=== PATIENT | female | born 1990 | race Caucasian/White ===

== ENCOUNTER 2016-06-20 17:32 | Emergency (ER) | payer MEDICAID ==
[2016-06-20] MEDS ORDERED: LACTATED RINGER'S 1000 ML INJ 1,000 ML IV ONE (18:45)
[2016-06-20 19:04] LABS: BACTERIA, URINE OCC /hpf; BLOOD, URINE NEG (NEG); COMMENT (UR) CULT NOT INDICATED; CULTURE IF INDICATED CULT NOT INDICATED; GLUCOSE,URINE NEG (NEG); KETONE, URINE NEG (NEG); NITRITE,URINE NEG (NEG); SQUAMOUS EPITHELIAL CELL URINE 1 /hpf (0-5); URINE COLOR COLORLESS (YELLW/STRAW)
[2016-06-20 19:45] VITALS: PULSE 98; RESP 18
[2016-06-20] MEDS ORDERED: TERBUTALINE INJ 1 MG/ML AMP SQ ONE (19:45)
--- NOTE | 2016-06-20 20:11 | PD ---
HPI Chief Complaint Pelvic pressure Date Seen: June 20, 2016 Time Seen: 18:00 Travel History International Travel<30 Days: No Contact w/Intl Traveler<30Days: No Known Affected Area: No History of Present Illness HPI 25-year-old female who is at 31 weeks gestation comes in today complaining of pelvic pressure since this morning. Denies contractions vaginal bleeding or vaginal discharge and is been having normal movement. No complications during this with the last visit approximately 10 days ago Para: 0 : 1 History Past Medical History Medical History: Denies Significant Hx Past Surgical History Surgical History: No Previous Surgery Family History Family History: Negative Social History Alcohol Use: No Tobacco Use: No Substance Abuse: No Allergies-Medications (Allergen,Severity, Reaction): Coded Allergies: No Known Allergies (Unverified , 06/20/16) Review of Systems Except as stated in HPI: all other systems reviewed are Neg Physical Exam Vital Signs Date Time Temp Pulse Resp B/P Pulse Ox O2 Delivery O2 Flow Rate FiO2 06/20/16 19:45 98 18 Narrative GENERAL: Well-nourished, well-developed patient. SKIN: Warm and dry. HEAD: Normocephalic and atraumatic. EYES: No scleral icterus. No injection or drainage. ENT: No nasal drainage noted. Mucous membranes pink. Airway patent. NECK: Supple, trachea midline. No JVD. CARDIOVASCULAR: Regular rate and rhythm without murmurs, gallops, or rubs. RESPIRATORY: Breath sounds equal bilaterally. No accessory muscle use. BREASTS: Bilateral exam showed no masses , no retractions, no nipple discharge. ABDOMEN/GI: Abdomen soft, non-tender, bowel sounds present, no rebound, no guarding Gravid to [-32] weeks size Fundal Height: [-] GENITOURINARY: External Genitalia: intact and normal in appearance BUS glands: [-Normal] Cervix: [-Posterior] Dilatation: [-1] Effacement: [-Thick] Station: [--3] Presentation: [-Vertex] Membranes: [intact or ruptured] intact Uterine Contractions: [-] Every 5 minutes FHT's: Category: [-1] Baseline: [140-] Reactive: [Moderate-] Variability: [Moderate-] Decels: [Absent-] EXTREMITIES: No cyanosis or edema. BACK: Nontender without obvious deformity. No CVA tenderness. NEUROLOGICAL: Awake and alert. Motor and sensory grossly within normal limits. Five out of 5 muscle strength in all muscle groups. Normal speech. Patient was reevaluated after 2 hours. fibronectin was noted to be negative and urinalysis was normal. Patient has received 800 cc of lactated Ringer's and 0.25 mg of terbutaline given subcutaneous with resolution of contractions Data Data Orders Vital Signs (Adult) .ON ADMISSION (06/20/16 18:42) ^ Labor Status (06/20/16 18:42) Urinalysis - C+S If Indicated (06/20/16 18:42) Diet Liquid (06/20/16 Dinner) Type And Screen (06/20/16 18:42) Fibronectin (06/20/16 18:42) Lactated Ringer's 1000 Ml Inj (Lr 1000 M (06/20/16 18:45) Terbutaline Inj (Brethine Inj) (06/20/16 19:45) Labs Laboratory Tests Test 06/20/16 18:41 Urine Color COLORLESS Urine Turbidity CLEAR Urine pH 7.0 Urine Specific [place]on 1.002 Urine Protein NEG Urine Glucose (UA) NEG Urine Ketones NEG Urine Occult Blood NEG Urine Nitrite NEG Urine Bilirubin NEG Urine Urobilinogen LESS THAN 2.0 Urine Leukocyte Esterase NEG Urine RBC 1 Urine WBC 1 Urine Squamous Epithelial 1 Cells Urine Bacteria OCC Microscopic Urinalysis Comment CULT NOT INDICATED Fibronectin NEGATIVE MDM Plan 25-year-old female who is at 31 weeks gestation was noted to have contractions on the monitor but had a negative fibronectin and resolution of contractions after IV fluids and terbutaline Recommended modified bedrest and pelvic rest Follow-up with OB provider and labor precautions were given Diagnosis Diagnosis: Primary Impression: False labor before 37 completed weeks of gestation during in third trimester, antepartum Additional Impressions: Prematurity, weight 1,750-1,999 grams, with 31 completed weeks of gestation 31 weeks gestation of Disposition: DISCHARGE HOME Adrianna Grant MD June 20, 2016 20:11
== END 2016-06-20 20:18 | disposition home or self-care (01) ==
LOC: HOBED 17:32
DX: O47.03 False labor before 37 completed weeks of gestation, third trimester (principal); Z3A.31 31 weeks gestation of pregnancy
CPT/HCPCS: 81001; 82731; 86850; 86900; 86901; 96372; 99284; J3105; J7120

== ENCOUNTER 2016-08-15 07:42 | Inpatient (IN) | payer MEDICAID ==
[2016-08-15] VITALS (52 sets, daily range): BP systolic 119–175; BP diastolic 66–122; PULSE 18–242; RESP 17–19; TEMP 97.5–98.5
[~2016-08-15] VITALS: Ht 154.9 cm; Wt 64.4 kg
--- NOTE | 2016-08-15 08:01 | MH ---
cc: HCRISTIAN HARDING M.D. Corrected Copy: 08/16/16 DATE OF ADMISSION: 08/15/2016 DATE OF 1990 HISTORY The patient is a 25 year-old female 1, para 0. Last menstrual period was November 12, 2015. The patients estimated date of confinement August 17, 2016, confirmed by a first trimester ultrasound on January 23, 2016 where the crown/rump length measured 10 weeks and 3 days. The patient is approximately 39 weeks and 5 days with a favorable cervix. The patient's Singh score was 9 in the office. Biophysical profile obtained today was 8/8. Estimated weight is approximately 7 pounds. PAST MEDICAL HISTORY Patient denies any systemic or chronic disease. ALLERGIES No known drug allergies MEDICATIONS Current medications include vitamins. GYNECOLOGIC HISTORY Normal. OBSTETRICAL HISTORY The patient's obstetrical history is unremarkable. has had a healthy normal . Group B strep status is negative. Blood type is O+. Hepatitis, RPR and HIV screens were negative as were all other sexually transmitted disease panels. SOCIAL HISTORY Employed, . Denies any alcohol, tobacco or illicit substance use. FAMILY HISTORY Noncontributory. PHYSICAL EXAMINATION IN GENERAL: Well-appearing female in no acute distress. VITAL SIGNS: Stable. Blood pressures 150/100 and easily came down to 130/80. The patient's weight is 142 pounds. heart rate tracing is in the 140s and reactive. HEAD, EYES, EARS, NOSE, AND THROAT: Shows no adenopathy, thyromegaly. LUNGS: Lungs are clear in all frankel. CARDIOVASCULAR SYSTEM: Regular rate and rhythm. ABDOMEN: Gravid, full-term. The patient's cervix is 60% effaced, 3 cm soft, mid position and -2. Vertex presentation identified. EXTREMITIES: Symmetrical, full range of motion. There is no cyanosis or clubbing. She has about 1+ edema. There is no clonus. Deep tendon reflexes are 1+. NEUROLOGIC: Exam is nonfocal. ASSESSMENT The patient at 39 and 5 weeks with a slightly elevated blood pressure which normalized after relaxation. RECOMMENDATIONS: Recommendation is to proceed with induction of labor. The patient's cervix was inducible. She is scheduled for Pitocin with Talihina. The patients group B strep status is negative. Estimated weight is approximately 7 pounds. MD LUCIA Schwartz/lelo /12:57 PM /10:32 AM
[2016-08-15] MEDS: LACTATED RINGER'S 1000 ML INJ 1,000 ML IV SCH (08:30)
[2016-08-15] MEDS ORDERED: LACTATED RINGER'S 1000 ML INJ 1,000 ML IV PRN (09:06)
[2016-08-15] MEDS ORDERED: LIDOCAINE HCL 1% 50 ML VIAL I-DERMAL PRN (09:15)
[2016-08-15] MEDS ORDERED: CITRIC ACID-SODIUM CITRATE LIQ 30 ML UDC PO SCH (09:15)
[2016-08-15] MEDS ORDERED: LIDOCAINE HCL 1% 50 ML VIAL INFIL PRN (09:15)
[2016-08-15] MEDS ORDERED: MINERAL OIL 10 ML VIAL TOPICAL PRN (09:15)
[2016-08-15] MEDS ORDERED: OXYTOCIN 30 UNITS-500ML PREMIX 500 ML IV ONE (09:15)
[2016-08-15] MEDS ORDERED: SODIUM CHLORID 0.9% 500 ML INJ 500 ML IV PRN (09:15)
[2016-08-15] MEDS ORDERED: OXYTOCIN 30 UNITS-500ML PREMIX 500 ML IV SCH (09:15)
[2016-08-15] MEDS ORDERED: SODIUM CHLOR 0.9% 1000 ML INJ 1,000 ML IV PRN (09:26)
[2016-08-15 09:31] LABS: AUTOMATED NEUTROPHIL # 10.6 TH/MM3 (1.8-7.7); BASOPHIL # 0.1 TH/MM3 (0-0.2); BASOPHIL % 0.4 % (0.0-2.0); EOSINOPHIL # 0.1 TH/MM3 (0-0.4); EOSINOPHIL % 0.6 % (0.0-4.0); HEMATOCRIT 39.3 % (35.0-46.0); HEMO FLAGS DIFF FINAL; LYMPH % 18.2 % (9.0-44.0); LYMPHOCYTE # 2.5 TH/MM3 (1.0-4.8); MEAN CELL VOLUME 84.4 FL (80.0-100.0); MEAN CORPUSCULAR HEMOGLOBIN 28.1 PG (27.0-34.0); MEAN CORPUSCULAR HGB CONC 33.3 % (32.0-36.0); MONO % 4.3 % (0.0-8.0); NEUT % 76.5 % (16.0-70.0); PLATELET COUNT 166 TH/MM3 (150-450); RED BLOOD COUNT 4.66 MIL/MM3 (4.00-5.30); RED CELL DISTRIBUTION WIDTH 13.7 % (11.6-17.2); WHITE BLOOD COUNT 13.8 TH/MM3 (4.0-11.0)
[2016-08-15 09:40] LABS: BLOOD, URINE NEG (NEG); GLUCOSE,URINE NEG (NEG); KETONE, URINE NEG (NEG); NITRITE,URINE NEG (NEG); SQUAMOUS EPITHELIAL CELL URINE 1 /hpf (0-5); URINE COLOR LIGHT-YELLOW (YELLW/STRAW)
[2016-08-15 09:43] LABS: COMMENT (UR) CULT NOT INDICATED; CULTURE IF INDICATED CULT NOT INDICATED
[2016-08-15 10:07] LABS: ALT (GPT) 20 U/L (10-53)
[2016-08-15 10:10] LABS: ALKALINE PHOSPHATASE 176 U/L (45-117); TOTAL BILIRUBIN ADULT 0.2 MG/DL (0.2-1.0)
[2016-08-15 10:24] LABS: ANION GAP 12 MEQ/L (5-15); AST (GOT) 27 U/L (15-37); BICARBONATE 19.5 MEQ/L (21.0-32.0); BLOOD UREA NITROGEN 10 MG/DL (7-18); CHLORIDE 107 MEQ/L (98-107); GLOMERULAR FILTRATION RATE 102 ML/MIN (>89); POTASSIUM 3.8 MEQ/L (3.5-5.1); SODIUM (NA) 138 MEQ/L (136-145)
[2016-08-15] MEDS ORDERED: fentaNYL 2MCG-BUPIV 0.125% INJ 100 ML ONE (12:19)
[2016-08-15] MEDS ORDERED: DIPHTH/TETANUS/ACEL PERTUSSIS (BOOSTER) 0.5 ML VIAL/PFS IM ONE (16:00)
[2016-08-15] MEDS ORDERED: MEASLES, MUMPS, RUBELLA VACCINE 0.5 ML VIAL SQ ONE (16:00)
--- NOTE | 2016-08-15 17:01 | PD.OB.DELI ---
Anesthesia: Epidural Episiotomy: None Vaginal Delivery: Vacuum (Kiwi x 3 pulls) Presentation: Occiput anterior Nuchal Cord: None Delayed cord clamping (45 sec): Yes Shoulder Dystocia: Suprapubic pressure given, Hugo maneuver done : Female One Minute : 8 Five Minute : 9 Weight: 7/12 Placenta: Spontaneous delivery, Intact, 3 vessel cord Laceration: Vaginal laceration, 3 deg Repair: Vicryl running (3-0 and 2-0) Kevin Putnam MD Aug 15, 2016 17:01
[2016-08-15] MEDS ORDERED: ALUMINUM/MAGNESIUM/SIMETH 30 ML CUP PO PRN (17:15)
[2016-08-15] MEDS ORDERED: OXYTOCIN 10 UNIT/ML AMP XX PRN (17:15)
[2016-08-15] MEDS ORDERED: WITCH HAZEL 50%/GLYCERIN 12.5% 40 PAD JAR TOPICAL PRN (17:15)
[2016-08-15] MEDS ORDERED: ZOLPIDEM TARTRATE 5 MG TAB PO PRN (17:15)
[2016-08-15] MEDS ORDERED: DOCUSATE SODIUM 50 MG/SENNA 8.6 MG TAB PO PRN (17:15)
[2016-08-15] MEDS ORDERED: BENZOCAINE 20% TOPICAL SPRAY 60 ML CAN TOPICAL PRN (17:15)
[2016-08-15] MEDS ORDERED: SODIUM CHLORIDE 0.9% FLUSH 10 ML FLUSH IV FLUSH PRN (17:15)
[2016-08-15] MEDS ORDERED: ACETAMINOPHEN 325 MG TAB PO PRN (17:15)
[2016-08-15] MEDS ORDERED: ONDANSETRON ODT 4 MG TAB PO PRN (17:15)
[2016-08-15] MEDS ORDERED: ePHEDrine/NS 25 MG/5 ML SYR IV PRN (18:00)
[2016-08-15] MEDS ORDERED: DO NOT ADMINISTER ANTICOAGULANTS PRN (18:00)
[2016-08-15] MEDS ORDERED: fentaNYL 2MCG-BUPIV 0.125% 100 ML EPIDURAL SCH (18:00)
[2016-08-15] MEDS ORDERED: NO SYSTEM NARCOTICS PRN (18:00)
[2016-08-15] MEDS: SODIUM CHLORIDE 0.9% FLUSH 10 ML FLUSH IV FLUSH SCH (21:00)
[2016-08-16] MEDS: IBUPROFEN 600 MG TAB PO PRN ×3 (00:58→17:51)
[2016-08-16] MEDS: LACTATED RINGER'S 1000 ML INJ 1,000 ML IV SCH (01:06)
[2016-08-16 08:40] VITALS: BP 137/82; PULSE 85; RESP 18; TEMP 98.3
--- NOTE | 2016-08-16 08:50 | HHI.OB ---
Subjective Post Day: 1 Remarks no CUMMINGS, no BV, no CP Objective Vitals/I&O Vital Signs Date Time Temp Pulse Resp B/P Pulse Ox O2 Delivery O2 Flow Rate FiO2 08/15/16 19:40 98.5 18 08/15/16 19:40 102 138/94 08/15/16 18:30 105 140/81 08/15/16 18:28 96 140/89 08/15/16 18:07 17 08/15/16 18:00 18 08/15/16 18:00 103 137/95 08/15/16 17:45 112 139/81 08/15/16 17:45 18 08/15/16 17:30 18 08/15/16 17:30 242 127/78 08/15/16 17:15 97.5 08/15/16 17:15 109 124/88 08/15/16 17:07 17 08/15/16 17:04 117 144/85 08/15/16 17:00 18 18 08/15/16 16:30 17 08/15/16 16:15 18 08/15/16 16:00 17 08/15/16 15:30 18 08/15/16 15:01 128 175/122 08/15/16 14:45 131 167/86 08/15/16 14:30 132 170/100 08/15/16 14:25 142 08/15/16 14:20 121 08/15/16 14:17 90 140/78 08/15/16 14:15 104 08/15/16 14:10 89 08/15/16 14:05 95 08/15/16 14:00 96 131/85 08/15/16 14:00 82 08/15/16 13:55 93 08/15/16 13:50 92 08/15/16 13:46 109 137/87 08/15/16 13:45 95 08/15/16 13:40 80 08/15/16 13:39 111 138/84 08/15/16 13:35 124 08/15/16 13:30 91 08/15/16 13:30 104 120/100 08/15/16 13:26 79 133/81 08/15/16 13:25 99 08/15/16 13:20 126 08/15/16 13:20 92 119/66 08/15/16 13:15 114 137/80 08/15/16 13:15 91 08/15/16 13:10 104 08/15/16 13:10 94 126/76 08/15/16 13:08 90 138/82 08/15/16 13:06 18 08/15/16 13:05 109 08/15/16 13:05 90 139/86 08/15/16 13:00 104 08/15/16 12:55 98 08/15/16 12:41 19 08/15/16 12:00 18 08/15/16 12:00 98.0 08/15/16 11:59 97 138/97 08/15/16 11:29 18 08/15/16 10:40 17 08/15/16 10:37 96 142/93 08/15/16 10:30 18 08/15/16 10:15 18 08/15/16 09:03 92 138/98 Objective Remarks GENERAL: Well-nourished, well-developed patient. CARDIOVASCULAR: Regular rate and rhythm without murmurs, gallops, or rubs. RESPIRATORY: Breath sounds equal bilaterally. No accessory muscle use. ABDOMEN/GI: Abdomen soft, non-tender. Fundus: Firm, non-tender at umbilicus. GENITOURINARY: Light to moderate bleeding. EXTREMITIES: No cyanosis or edema, non-tender, without signs of DVT. Medications and IVs Current Medications Medications (Trade) Dose Ordered Sig/Cristela Route Start Time Stop Time Status Last Admin Oxytocin 500 ml @ 0 mls/hr TITRATE IV 08/15/16 09:15 08/15/16 10:07 Lactated Ringer's 1,000 ml @ 125 mls/hr Q8H IV 08/15/16 09:06 08/15/16 08:30 Lactated Ringer's 1,000 ml @ 3,000 mls/hr Q20M PRN IV 08/15/16 09:06 Sodium Chloride 500 ml @ 1,000 mls/hr ONCE PRN IV 08/15/16 09:15 08/16/16 09:14 (NS 1000 ml Inj) 1,000 ml @ 100 mls/hr Q10H PRN IV 08/15/16 09:26 (fentaNYL INJ) 50 mcg Q1H PRN IV PUSH 08/15/16 09:15 (fentaNYL INJ) 100 mcg Q1H PRN IV PUSH 08/15/16 09:15 (Muri-Lube Oil) 10 ml UNSCH PRN TOPICAL 08/15/16 09:15 (NS Flush) 2 ml BID IV FLUSH 08/15/16 21:00 (NS Flush) 2 ml UNSCH PRN IV FLUSH 08/15/16 17:15 (Tylenol) 650 mg Q4H PRN PO 08/15/16 17:15 (Motrin) 600 mg Q6H PRN PO 08/15/16 17:15 08/16/16 00:58 (Americaine 20% Top Spr) 1 spray Q4H PRN TOPICAL 08/15/16 17:15 08/16/16 02:58 (Tucks Pads) 1 applic QID PRN TOPICAL 08/15/16 17:15 08/16/16 00:58 (Monica-Colace) 2 tab Q12H PRN PO 08/15/16 17:15 (Ambien) 5 mg HS PRN PO 08/15/16 17:15 (Mag-Al Plus Susp Liq) 15 ml Q8H PRN PO 08/15/16 17:15 (Zofran Odt) 4 mg Q6H PRN PO 08/15/16 17:15 Miscellaneous Information No systemic narcotics to be given except... UNSCH PRN .XX 08/15/16 18:00 08/16/16 17:59 Miscellaneous Information DO NOT ADMINISTER ANY ANTICOAGUL... UNSCH PRN .XX 08/15/16 18:00 08/16/16 17:59 (fentaNYL 2MCG-BUPIV 0.125% INJ) 100 ml @ 0 mls/hr TITRATE EPIDURAL 08/15/16 18:00 (ePHEDrine/NS 25 MG/5 ML SYR) 10 mg UNSCH PRN IV 08/15/16 18:00 08/16/16 17:59 Assessment/Plan Assessment and Plan PPD #1 , pt states white coat HTN, will start labetolol 100 mg BID check labs again Discharge Planning in AM Attending Attestation pt seen by Nancy Guillaume MD Aug 16, 2016 08:50
[2016-08-16] MEDS: LABETALOL HCL 100 MG TAB PO SCH ×2 (09:30→21:06)
[2016-08-16 11:14] LABS: AUTOMATED NEUTROPHIL # 14.1 TH/MM3 (1.8-7.7); BASOPHIL % 0.2 % (0.0-2.0); EOSINOPHIL % 0.2 % (0.0-4.0); HEMATOCRIT 36.1 % (35.0-46.0); HEMO FLAGS DIFF FINAL; LYMPH % 14.3 % (9.0-44.0); LYMPHOCYTE # 2.5 TH/MM3 (1.0-4.8); MEAN CELL VOLUME 84.7 FL (80.0-100.0); MONO % 5.7 % (0.0-8.0); NEUT % 79.6 % (16.0-70.0); PLATELET COUNT 159 TH/MM3 (150-450); RED BLOOD COUNT 4.27 MIL/MM3 (4.00-5.30); RED CELL DISTRIBUTION WIDTH 13.4 % (11.6-17.2); WHITE BLOOD COUNT 17.7 TH/MM3 (4.0-11.0)
[2016-08-16 11:27] LABS: ANION GAP 7 MEQ/L (5-15); AST (GOT) 44 U/L (15-37); BICARBONATE 26.2 MEQ/L (21.0-32.0); BLOOD UREA NITROGEN 6 MG/DL (7-18); CHLORIDE 106 MEQ/L (98-107); GLOMERULAR FILTRATION RATE 122 ML/MIN (>89); POTASSIUM 3.4 MEQ/L (3.5-5.1); SODIUM (NA) 139 MEQ/L (136-145)
[2016-08-16 11:31] LABS: ALKALINE PHOSPHATASE 147 U/L (45-117); ALT (GPT) 24 U/L (10-53); TOTAL BILIRUBIN ADULT 0.3 MG/DL (0.2-1.0)
[2016-08-16 16:10] VITALS: BP 129/84; PULSE 87; RESP 18; TEMP 98.1
[2016-08-16 19:58] VITALS: BP 136/87; PULSE 82; RESP 18; TEMP 97.8
[2016-08-16] MEDS: SODIUM CHLORIDE 0.9% FLUSH 10 ML FLUSH IV FLUSH SCH (20:07)
[2016-08-17] MEDS: LACTATED RINGER'S 1000 ML INJ 1,000 ML IV SCH (01:06)
[2016-08-17] MEDS ORDERED: SENN1TAB PO (06:58)
[2016-08-17] MEDS ORDERED: IBUP-232 PO (06:58)
--- NOTE | 2016-08-17 06:59 | HHI.DCPOC ---
Discharge Care Plan Diagnosis: (1) (spontaneous vaginal delivery) Your Health Problems Are: Vaginal delivery Report Symptoms to Your Doctor -Temperature above 100.5 degrees -Redness, of incision or excessive or foul smelling drainage -Unusual pain or calf pain -Increased vaginal bleeding -Painful or difficulty urinating -Feelings of extreme sadness or anxiety after 2 weeks Goals to Promote Your Health * To prevent worsening of your condition and complications * To maintain your health at the optimal level Directions to Meet Your Goals Take your medications as prescribed Follow your dietary instruction Follow activity as directed Ensure plenty of rest for recovery Drink fluids for hydration Keep your appointments as scheduled Take your immunizations and boosters as scheduled If your symptoms worsen call your PCP, if no PCP go to Urgent Care Center or Emergency Room Smoking is Dangerous to Your Health. Avoid second hand smoke Call the 24-hour crisis hotline for domestic abuse at Maddy Forrest MD Aug 17, 2016 06:59
[2016-08-17] MEDS ORDERED: LABE100T2 PO (07:38)
--- NOTE | 2016-08-17 07:40 | HHI.OB ---
Subjective Post Day: 2 Remarks s/p VAVD with 3rd degree laceration Objective Vitals/I&O Vital Signs Date Time Temp Pulse Resp B/P Pulse Ox O2 Delivery O2 Flow Rate FiO2 08/16/16 19:58 97.8 82 18 136/87 08/16/16 16:10 98.1 87 18 129/84 08/16/16 08:40 85 137/82 08/16/16 08:40 98.3 18 Objective Remarks GENERAL: Well-nourished, well-developed patient. CARDIOVASCULAR: Regular rate and rhythm without murmurs, gallops, or rubs. RESPIRATORY: Breath sounds equal bilaterally. No accessory muscle use. ABDOMEN/GI: Abdomen soft, non-tender. Fundus: Firm, non-tender at umbilicus. GENITOURINARY: Light to moderate bleeding. EXTREMITIES: No cyanosis or edema, non-tender, without signs of DVT. Medications and IVs Current Medications Medications (Trade) Dose Ordered Sig/Cristela Route Start Time Stop Time Status Last Admin Oxytocin 500 ml @ 0 mls/hr TITRATE IV 08/15/16 09:15 08/15/16 10:07 Lactated Ringer's 1,000 ml @ 125 mls/hr Q8H IV 08/15/16 09:06 08/15/16 08:30 Lactated Ringer's 1,000 ml @ 3,000 mls/hr Q20M PRN IV 08/15/16 09:06 (NS 1000 ml Inj) 1,000 ml @ 100 mls/hr Q10H PRN IV 08/15/16 09:26 (fentaNYL INJ) 50 mcg Q1H PRN IV PUSH 08/15/16 09:15 (fentaNYL INJ) 100 mcg Q1H PRN IV PUSH 08/15/16 09:15 (Muri-Lube Oil) 10 ml UNSCH PRN TOPICAL 08/15/16 09:15 (NS Flush) 2 ml BID IV FLUSH 08/15/16 21:00 (NS Flush) 2 ml UNSCH PRN IV FLUSH 08/15/16 17:15 (Tylenol) 650 mg Q4H PRN PO 08/15/16 17:15 (Motrin) 600 mg Q6H PRN PO 08/15/16 17:15 08/16/16 17:51 (Americaine 20% Top Spr) 1 spray Q4H PRN TOPICAL 08/15/16 17:15 08/16/16 02:58 (Tucks Pads) 1 applic QID PRN TOPICAL 08/15/16 17:15 08/16/16 00:58 (Monica-Colace) 2 tab Q12H PRN PO 08/15/16 17:15 08/16/16 21:07 (Ambien) 5 mg HS PRN PO 08/15/16 17:15 (Mag-Al Plus Susp Liq) 15 ml Q8H PRN PO 08/15/16 17:15 Ondansetron HCl 4 mg 4 mg Q6H PRN PO 08/15/16 17:15 (fentaNYL 2MCG-BUPIV 0.125% INJ) 100 ml @ 0 mls/hr TITRATE EPIDURAL 08/15/16 18:00 (Trandate) 100 mg Q12HR PO 08/16/16 09:30 08/16/16 21:06 Assessment/Plan Assessment and Plan PPD #2 s/p , mild-mod HTN yesterday, started labetolol 100 mg BID, will continue d/w pt 2 wk BP check in office & importance of stool softener use due to 3rd degree lac home today Discharge Planning today Maddy Forrest MD Aug 17, 2016 07:40
[2016-08-17 08:00] VITALS: BP 128/83; PULSE 82; RESP 16; TEMP 98
[2016-08-17] MEDS: LABETALOL HCL 100 MG TAB PO SCH (08:16)
[2016-08-17] MEDS: IBUPROFEN 600 MG TAB PO PRN (08:18)
== END 2016-08-17 12:46 | disposition home or self-care (01) | DRG 775 ==
LOC: H2EB 07:42 → H1EA 19:08
PROVIDERS: ADMIT Obstetrics & Gynecology; ATTEND Obstetrics & Gynecology
PROC: 10D07Z6 Extraction of Products of Conception, Vacuum, Via Natural or Artificial Opening (ICD-10-PCS; principal; 2016-08-15)
PROC: 0DQR0ZZ Repair Anal Sphincter, Open Approach (ICD-10-PCS; 2016-08-15)
PROC: 3E0R3CZ (ICD-10-PCS; 2016-08-15)
PROC: 00HU33Z Insertion of Infusion Device into Spinal Canal, Percutaneous Approach (ICD-10-PCS; 2016-08-15)
DX: O66.0 Obstructed labor due to shoulder dystocia (principal); O16.4 Unspecified maternal hypertension, complicating childbirth; O71.4 Obstetric high vaginal laceration alone; Z37.0 Single live birth; O99.344 Other mental disorders complicating childbirth; F41.9 Anxiety disorder, unspecified; Z3A.39 39 weeks gestation of pregnancy
CPT/HCPCS: 59025; 80053; 81001; 85025; 86900; 86901; 90715; J2590; J7120